=== PATIENT | male | born 1950 | race Caucasian/White ===

== ENCOUNTER 2022-04-24 05:56 | Inpatient (IN) ==
[2022-04-24] MEDS ORDERED: NOREPINEPHRINE 4 MG/4 ML VIAL IV ONE (12:44)
[2022-04-24] MEDS ORDERED: ALBUTEROL 2.5 MG/3 ML NEB RESP TX PRN (12:54)
[2022-04-24] MEDS ORDERED: DEXTROSE 10% 250 ML BAG IV PRN (12:55)
[2022-04-24] MEDS ORDERED: ONDANSETRON 4 MG/2 ML VIAL IV PRN (12:55)
[2022-04-24] MEDS ORDERED: NOREPINEPHRINE 8 MG in SODIUM CHLORIDE 0.9% 242 ML IV PRN (12:55)
[2022-04-24] MEDS ORDERED: ACETAMINOPHEN 325 MG TABLET PO PRN (12:55)
[2022-04-24] MEDS ORDERED: GLUCAGON 1 MG VIAL IM PRN (12:55)
[2022-04-24] MEDS ORDERED: MORPHINE 2 MG/1 ML SYRINGE IV PRN (12:55)
[2022-04-24 13:48] LABS: Bilirubin,Urine Negative (Negative); Blood, Urine Large mg/dL (Negative); Glucose,Urine (UA) 50 mg/dL (Negative); Ketones,Urine Negative (Negative); Nitrite,Urine Negative (Negative); Protein,Urine 100 mg/dL (Negative); RBC,Urine 1408 /HPF (0-4); Urine Appearance CLOUDY (Clear); Urine Color Red (Yellow); Urine Specific Gravity 1.038 (1.001-1.035); Urine Urobilinogen < 2.0 eU/dL (<2.0)
[2022-04-24] MEDS ORDERED: SODIUM CHLORIDE 0.9% 1,000 ML IV ONE (14:01)
[2022-04-24 14:11] LABS: Basophils % 0.4 % (0.0-0.8); Hematocrit 40.7 VOL% (42.0-52.0); Hemoglobin 12.4 GM/DL (14.0-18.0); Immature Granulocytes % 0.9 %; Lymphocytes # 0.3 10*3/uL (1.4-4.0); Lymphocytes % 2.6 % (21.2-54.2); Mean Corpuscular HGB Conc 30.5 GM/DL (32-36); Mean Platelet Volume 10.5 FL (9.6-12.0); Monocytes # 0.3 10*3/uL (0.11-0.8); Monocytes % 3.1 % (1.7-12.7); Platelet Count 205 T/CUMM (130-400); Red Blood Count 4.68 MC/CUMM (3.8-5.5); Red Cell Distribution Width 15.6 % (9.3-17.3); White Blood Count 10.6 T/CUMM (4-12)
[2022-04-24 14:41] LABS: Albumin 2.3 G/DL (3.4-5.0); Bilirubin,Total 0.7 MG/DL (0.20-1.00); Calcium 8.1 MG/DL (8.5-10.1); Osmolality,Calculated 292.1 MOS/KG (273-304); Potassium 5.2 MMOL/L (3.5-5.1); Total Protein 5.8 G/DL (6.4-8.2)
[2022-04-24 14:49] LABS: Band Neutrophils 17 % (0-10); Lymphocytes 1 % (20-55); Total Cells Counted 100
[2022-04-24 14:50] LABS: Platelet Estimate Normal
[2022-04-24] MEDS ORDERED: MAGNESIUM SULF RIDER 2 GM/50 ML PREMIX IV PRN (15:05)
[2022-04-24] MEDS ORDERED: MAGNESIUM SULF RIDER 4 GM/100 ML PREMIX IV PRN (15:05)
[2022-04-24] MEDS: MEROPENEM 500 MG in SODIUM CHLORIDE 0.9% 100 ML IV SCH ×2 (15:09→22:40)
[2022-04-24] MEDS: SODIUM CHLORIDE 0.9% 1,000 ML IV SCH ×2 (15:09→22:43)
[2022-04-24] MEDS ORDERED: ENOXAPARIN 40 MG/0.4 ML SYRINGE SUBCUT SCH (16:00)
[2022-04-24] MEDS: INSULIN LISPRO 100 UNIT/ML SUBCUT SCH ×2 (17:16→20:00)
[2022-04-25] MEDS: SODIUM CHLORIDE 0.9% 1,000 ML IV SCH ×4 (00:07→22:12)
[2022-04-25 04:07] LABS: Basophils % 0.5 % (0.0-0.8); Hematocrit 35.1 VOL% (42.0-52.0); Hemoglobin 10.9 GM/DL (14.0-18.0); Immature Granulocytes % 1.1 %; Immature Granulocytes Absolute 0.08 #; Lymphocytes # 1.1 10*3/uL (1.4-4.0); Lymphocytes % 15.2 % (21.2-54.2); Mean Corpuscular HGB Conc 31.1 GM/DL (32-36); Mean Corpuscular Volume 86.9 FL (87-102); Mean Platelet Volume 10.5 FL (9.6-12.0); Monocytes # 0.3 10*3/uL (0.11-0.8); Monocytes % 4.6 % (1.7-12.7); Neutrophils % 78.6 % (38.7-73.9); Platelet Count 162 T/CUMM (130-400); Red Blood Count 4.04 MC/CUMM (3.8-5.5); Red Cell Distribution Width 15.6 % (9.3-17.3); White Blood Count 7.4 T/CUMM (4-12)
[2022-04-25 04:27] LABS: Calcium 7.9 MG/DL (8.5-10.1); Osmolality,Calculated 290.1 MOS/KG (273-304)
[2022-04-25] MEDS: MEROPENEM 500 MG in SODIUM CHLORIDE 0.9% 100 ML IV SCH ×3 (06:35→22:16)
[2022-04-25] MEDS: INSULIN LISPRO 100 UNIT/ML SUBCUT SCH ×4 (08:18→20:41)
[2022-04-25] MEDS: PANTOPRAZOLE 40 MG TABLET PO SCH (08:35)
[2022-04-25] MEDS: GABAPENTIN 300 MG CAPSULE PO SCH ×2 (16:10→20:40)
[2022-04-25] MEDS: TAMSULOSIN 0.4 MG CAPSULE PO SCH (20:38)
[2022-04-26] MEDS: SODIUM CHLORIDE 0.9% 1,000 ML IV SCH ×2 (05:24→21:48)
[2022-04-26 06:25] LABS: Basophils % 0.6 % (0.0-0.8); Eosinophils # 0.1 10*3/uL (0.0-0.87); Eosinophils % 1.9 % (0.00-10.9); Hematocrit 35.9 VOL% (42.0-52.0); Hemoglobin 11.1 GM/DL (14.0-18.0); Immature Granulocytes % 0.8 %; Immature Granulocytes Absolute 0.05 #; Lymphocytes # 1.2 10*3/uL (1.4-4.0); Lymphocytes % 19.1 % (21.2-54.2); Mean Corpuscular HGB Conc 30.9 GM/DL (32-36); Mean Corpuscular Volume 85.7 FL (87-102); Mean Platelet Volume 10.5 FL (9.6-12.0); Monocytes # 0.5 10*3/uL (0.11-0.8); Monocytes % 8.5 % (1.7-12.7); Neutrophils % 69.1 % (38.7-73.9); Platelet Count 144 T/CUMM (130-400); Red Blood Count 4.19 MC/CUMM (3.8-5.5); Red Cell Distribution Width 15.9 % (9.3-17.3); White Blood Count 6.2 T/CUMM (4-12)
[2022-04-26 06:45] LABS: Bilirubin,Total 0.5 MG/DL (0.20-1.00); Osmolality,Calculated 285.1 MOS/KG (273-304); Potassium 4.2 MMOL/L (3.5-5.1); Total Protein 5.4 G/DL (6.4-8.2)
[2022-04-26] MEDS: INSULIN LISPRO 100 UNIT/ML SUBCUT SCH ×4 (09:39→21:48)
[2022-04-26] MEDS: SERTRALINE 25 MG TABLET PO SCH (09:53)
[2022-04-26] MEDS: GABAPENTIN 300 MG CAPSULE PO SCH ×3 (09:54→21:10)
[2022-04-26] MEDS: MEROPENEM 500 MG in SODIUM CHLORIDE 0.9% 100 ML IV SCH ×3 (09:54→23:14)
[2022-04-26] MEDS: SIMVASTATIN 10 MG TABLET PO SCH (09:54)
[2022-04-26] MEDS: PANTOPRAZOLE 40 MG TABLET PO SCH (09:54)
[2022-04-26] MEDS: MICAFUNGIN 100 MG in SODIUM CHLORIDE 0.9% 100 ML IV SCH (10:40)
[2022-04-26] MEDS: TAMSULOSIN 0.4 MG CAPSULE PO SCH (21:10)
[2022-04-27] MEDS: SODIUM CHLORIDE 0.9% 1,000 ML IV SCH ×4 (01:10→23:17)
[2022-04-27 05:25] LABS: Basophils % 0.6 % (0.0-0.8); Eosinophils # 0.1 10*3/uL (0.0-0.87); Eosinophils % 2.6 % (0.00-10.9); Hematocrit 33.7 VOL% (42.0-52.0); Hemoglobin 10.6 GM/DL (14.0-18.0); Immature Granulocytes % 0.6 %; Immature Granulocytes Absolute 0.03 #; Lymphocytes # 1.7 10*3/uL (1.4-4.0); Lymphocytes % 30.8 % (21.2-54.2); Mean Corpuscular HGB Conc 31.5 GM/DL (32-36); Mean Corpuscular Volume 86.4 FL (87-102); Mean Platelet Volume 11.5 FL (9.6-12.0); Monocytes # 0.6 10*3/uL (0.11-0.8); Monocytes % 11.2 % (1.7-12.7); Neutrophils % 54.2 % (38.7-73.9); Platelet Count 143 T/CUMM (130-400); Red Cell Distribution Width 15.8 % (9.3-17.3); White Blood Count 5.4 T/CUMM (4-12)
[2022-04-27 05:50] LABS: Calcium 7.9 MG/DL (8.5-10.1); Osmolality,Calculated 289.8 MOS/KG (273-304); Potassium 3.7 MMOL/L (3.5-5.1)
[2022-04-27] MEDS: PANTOPRAZOLE 40 MG TABLET PO SCH (08:15)
[2022-04-27] MEDS: GABAPENTIN 300 MG CAPSULE PO SCH ×3 (08:15→20:28)
[2022-04-27] MEDS: SIMVASTATIN 10 MG TABLET PO SCH (08:15)
[2022-04-27] MEDS: SERTRALINE 25 MG TABLET PO SCH (08:15)
[2022-04-27] MEDS: MEROPENEM 500 MG in SODIUM CHLORIDE 0.9% 100 ML IV SCH ×3 (08:19→23:00)
[2022-04-27] MEDS: INSULIN LISPRO 100 UNIT/ML SUBCUT SCH ×4 (08:29→20:53)
[2022-04-27] MEDS: MICAFUNGIN 100 MG in SODIUM CHLORIDE 0.9% 100 ML IV SCH (11:15)
[2022-04-27] MEDS ORDERED: PHENOL 1.4% THROAT SPRAY 177 ML BOTTLE PO PRN (14:39)
[2022-04-27] MEDS: TAMSULOSIN 0.4 MG CAPSULE PO SCH (20:28)
[2022-04-28] MEDS: SODIUM CHLORIDE 0.9% 1,000 ML IV SCH ×4 (04:19→22:40)
[2022-04-28 05:53] LABS: Basophils # 0.1 10*3/uL (0.0-0.2); Basophils % 0.9 % (0.0-0.8); Eosinophils # 0.2 10*3/uL (0.0-0.87); Eosinophils % 4.2 % (0.00-10.9); Hematocrit 33.5 VOL% (42.0-52.0); Hemoglobin 10.4 GM/DL (14.0-18.0); Immature Granulocytes % 0.9 %; Immature Granulocytes Absolute 0.05 #; Lymphocytes # 1.9 10*3/uL (1.4-4.0); Lymphocytes % 32.7 % (21.2-54.2); Mean Corpuscular Volume 86.1 FL (87-102); Mean Platelet Volume 10.5 FL (9.6-12.0); Monocytes # 0.8 10*3/uL (0.11-0.8); Monocytes % 13.6 % (1.7-12.7); Neutrophils % 47.7 % (38.7-73.9); Platelet Count 149 T/CUMM (130-400); Red Blood Count 3.89 MC/CUMM (3.8-5.5); Red Cell Distribution Width 15.7 % (9.3-17.3); White Blood Count 5.7 T/CUMM (4-12)
[2022-04-28] MEDS: MEROPENEM 500 MG in SODIUM CHLORIDE 0.9% 100 ML IV SCH ×3 (06:03→22:40)
[2022-04-28 06:21] LABS: Calcium 8.4 MG/DL (8.5-10.1); Osmolality,Calculated 288.8 MOS/KG (273-304); Potassium 3.7 MMOL/L (3.5-5.1)
[2022-04-28] MEDS: INSULIN LISPRO 100 UNIT/ML SUBCUT SCH ×4 (07:51→21:03)
[2022-04-28] MEDS: SERTRALINE 25 MG TABLET PO SCH (09:41)
[2022-04-28] MEDS: MICAFUNGIN 100 MG in SODIUM CHLORIDE 0.9% 100 ML IV SCH (09:41)
[2022-04-28] MEDS: PANTOPRAZOLE 40 MG TABLET PO SCH (09:41)
[2022-04-28] MEDS: SIMVASTATIN 10 MG TABLET PO SCH (09:41)
[2022-04-28] MEDS: GABAPENTIN 300 MG CAPSULE PO SCH ×3 (09:41→21:03)
[2022-04-28] MEDS: TAMSULOSIN 0.4 MG CAPSULE PO SCH (21:03)
[2022-04-29 05:47] LABS: Basophils # 0.1 10*3/uL (0.0-0.2); Eosinophils # 0.3 10*3/uL (0.0-0.87); Hematocrit 34.1 VOL% (42.0-52.0); Hemoglobin 10.4 GM/DL (14.0-18.0); Immature Granulocytes % 1.7 %; Lymphocytes % 32.9 % (21.2-54.2); Mean Corpuscular HGB Conc 30.5 GM/DL (32-36); Mean Corpuscular Volume 85.3 FL (87-102); Mean Platelet Volume 10.6 FL (9.6-12.0); Monocytes # 0.8 10*3/uL (0.11-0.8); Monocytes % 12.7 % (1.7-12.7); Neutrophils % 46.7 % (38.7-73.9); Platelet Count 175 T/CUMM (130-400); Red Cell Distribution Width 15.7 % (9.3-17.3); White Blood Count 6.1 T/CUMM (4-12)
[2022-04-29] MEDS: SODIUM CHLORIDE 0.9% 1,000 ML IV SCH ×3 (06:07→23:33)
[2022-04-29] MEDS: MEROPENEM 500 MG in SODIUM CHLORIDE 0.9% 100 ML IV SCH ×3 (06:07→23:24)
[2022-04-29 06:21] LABS: Calcium 8.3 MG/DL (8.5-10.1); Osmolality,Calculated 288.8 MOS/KG (273-304); Potassium 3.9 MMOL/L (3.5-5.1)
[2022-04-29] MEDS: INSULIN LISPRO 100 UNIT/ML SUBCUT SCH ×4 (08:04→21:48)
[2022-04-29] MEDS: SIMVASTATIN 10 MG TABLET PO SCH (09:52)
[2022-04-29] MEDS: SERTRALINE 25 MG TABLET PO SCH (09:52)
[2022-04-29] MEDS: GABAPENTIN 300 MG CAPSULE PO SCH ×3 (09:52→20:40)
[2022-04-29] MEDS: PANTOPRAZOLE 40 MG TABLET PO SCH (09:52)
[2022-04-29] MEDS: MICAFUNGIN 100 MG in SODIUM CHLORIDE 0.9% 100 ML IV SCH (09:54)
[2022-04-29] MEDS: TAMSULOSIN 0.4 MG CAPSULE PO SCH (20:40)
[2022-04-30] MEDS: SODIUM CHLORIDE 0.9% 1,000 ML IV SCH ×3 (03:23→16:04)
[2022-04-30 06:07] LABS: Basophils # 0.1 10*3/uL (0.0-0.2); Basophils % 0.8 % (0.0-0.8); Eosinophils # 0.4 10*3/uL (0.0-0.87); Eosinophils % 4.3 % (0.00-10.9); Immature Granulocytes % 2.9 %; Immature Granulocytes Absolute 0.25 #; Lymphocytes # 2.2 10*3/uL (1.4-4.0); Mean Corpuscular HGB Conc 30.6 GM/DL (32-36); Mean Corpuscular Volume 85.5 FL (87-102); Mean Platelet Volume 10.5 FL (9.6-12.0); Monocytes % 11.7 % (1.7-12.7); Neutrophils % 54.3 % (38.7-73.9); Platelet Count 196 T/CUMM (130-400); Red Blood Count 4.21 MC/CUMM (3.8-5.5); Red Cell Distribution Width 15.7 % (9.3-17.3); White Blood Count 8.6 T/CUMM (4-12)
[2022-04-30] MEDS: MEROPENEM 500 MG in SODIUM CHLORIDE 0.9% 100 ML IV SCH ×2 (06:15→16:03)
[2022-04-30 06:37] LABS: Calcium 8.9 MG/DL (8.5-10.1); Osmolality,Calculated 286.8 MOS/KG (273-304); Potassium 4.3 MMOL/L (3.5-5.1)
[2022-04-30] MEDS: INSULIN LISPRO 100 UNIT/ML SUBCUT SCH ×3 (07:24→15:37)
[2022-04-30] MEDS: PANTOPRAZOLE 40 MG TABLET PO SCH (08:45)
[2022-04-30] MEDS: SERTRALINE 25 MG TABLET PO SCH (08:45)
[2022-04-30] MEDS: SIMVASTATIN 10 MG TABLET PO SCH (08:46)
[2022-04-30] MEDS: GABAPENTIN 300 MG CAPSULE PO SCH ×2 (08:46→17:15)
[2022-04-30] MEDS: MICAFUNGIN 100 MG in SODIUM CHLORIDE 0.9% 100 ML IV SCH (10:00)
[2022-04-30 15:32] VITALS: BP 137/76
== END 2022-04-30 18:20 | DRG 871 ==
LOC: SUATTDRO 12:32 → N.CC 12:32 → N.3E 04-25 18:13
PROVIDERS: ADMIT Internal Medicine; ATTEND Internal Medicine